=== PATIENT | female | born 1985 | race Caucasian/White ===

== ENCOUNTER 2017-11-15 15:30 | Emergency (ER) | payer SELFPAY ==
[~2017-11-15] VITALS: Ht 170.2 cm; Wt 73.5 kg
[~2017-11-15 15:30] MED LIST: GABA-534 PO; HYDR-548 PO; SUMA100T PO
--- NOTE | 2017-11-15 16:00 | NUR ---
Patient discharged to home in stable conditon. Written and verbal after care instructions given. Patient verbalizes understanding of instructions.pt walks in steady gait. pt refuses pain medicine at this time.
== END 2017-11-15 16:01 | disposition home or self-care (01) ==
LOC: EDBD → ER 15:30
DX: K08.89 Other specified disorders of teeth and supporting structures (principal); Z90.710 Acquired absence of both cervix and uterus; Z79.891 Long term (current) use of opiate analgesic; Z79.899 Other long term (current) drug therapy
CPT/HCPCS: A4663

== ENCOUNTER 2017-11-20 12:55 | Emergency (ER) | payer SELFPAY ==
[~2017-11-20] VITALS: Ht 170.2 cm; Wt 76.2 kg
--- NOTE | 2017-11-20 15:40 | NUR ---
Patient was seen and examined by Dr Cano in room 04B.
[2017-11-20 15:55] VITALS: BP 119/76
--- NOTE | 2017-11-20 15:55 | NUR ---
Patient discharged to home in stable conditon. Written and verbal after care instructions given. Patient verbalizes understanding of instructions.
== END 2017-11-20 15:58 | disposition home or self-care (01) ==
LOC: EDBD → ER 12:55
DX: K04.01 Reversible pulpitis (principal); Z90.710 Acquired absence of both cervix and uterus; Z79.891 Long term (current) use of opiate analgesic; Z79.899 Other long term (current) drug therapy
CPT/HCPCS: A4663

== ENCOUNTER 2017-11-21 13:52 | Emergency (ER) | payer MEDICAID ==
[~2017-11-21] VITALS: Ht 170.2 cm; Wt 76.2 kg
--- NOTE | 2017-11-21 14:36 | NUR ---
Patient discharged to home in stable conditon. Written and verbal after care instructions given. Patient verbalizes understanding of instructions.pt waks in steady gait.
== END 2017-11-21 14:38 | disposition home or self-care (01) ==
LOC: EDBD → ER 13:53
DX: K08.89 Other specified disorders of teeth and supporting structures (principal); Z79.891 Long term (current) use of opiate analgesic; Z79.899 Other long term (current) drug therapy
CPT/HCPCS: A4663

== ENCOUNTER 2017-12-29 05:04 | Emergency (ER) | payer MEDICAID ==
[~2017-12-29] VITALS: Ht 170.2 cm; Wt 72.6 kg
--- NOTE | 2017-12-29 05:34 | NUR ---
Dr. Gotti at bedside for MSE.
--- NOTE | 2017-12-29 05:48 | NUR ---
Patient discharged to home in stable conditon. Written and verbal after care instructions given. Patient verbalizes understanding of instructions. Patient ambulated out of ER with steady gait, no acute signs of distress, VSS, all belongings taken.
[2017-12-29 05:50] VITALS: BP 134/77
== END 2017-12-29 05:50 | disposition home or self-care (01) ==
LOC: ER 05:10
DX: K08.89 Other specified disorders of teeth and supporting structures (principal)
CPT/HCPCS: 99283; A4663

== ENCOUNTER 2018-11-19 05:15 | Emergency (ER) | payer MEDICAID ==
[~2018-11-19] VITALS: Ht 170.2 cm; Wt 68.0 kg
[~2018-11-19 05:15] MED LIST changes: +HYDR-4354 PO; -HYDR-548 PO
--- NOTE | 2018-11-19 05:33 | NUR ---
FADUMO VALENCIA at bedside for patient evaluation.
--- NOTE | 2018-11-19 05:42 | NUR ---
Patient discharged to home in stable conditon. Written and verbal after care instructions given. Patient verbalizes understanding of instructions. Ambulated from ER with stable gait. All belongings with patient. VSS
[2018-11-19 05:43] VITALS: BP 128/74
[2018-11-19] MEDS ORDERED: IBUPROFEN 600 MG TABLET PO ONE (05:45)
== END 2018-11-19 05:45 | disposition home or self-care (01) ==
LOC: ER 05:19 → EDBD 05:19 → ER 05:45
DX: K08.89 Other specified disorders of teeth and supporting structures (principal); Z90.710 Acquired absence of both cervix and uterus; Z79.899 Other long term (current) drug therapy
CPT/HCPCS: A4663

== ENCOUNTER 2020-05-03 10:17 | Emergency (ER) | payer MEDICAID ==
[~2020-05-03] VITALS: Ht 170.2 cm; Wt 68.0 kg
--- NOTE | 2020-05-03 10:29 | NUR ---
Patient discharged to home in stable condition. Written and verbal after care instructions given. Patient verbalizes understanding of instructions. Stressed follow up or return to ER for worsening s/s.
== END 2020-05-03 10:30 | disposition home or self-care (01) ==
LOC: ER 10:17
DX: R11.0 Nausea (principal); T36.8X5A Adverse effect of other systemic antibiotics, initial encounter; Y92.89 Other specified places as the place of occurrence of the external cause; K04.7 Periapical abscess without sinus; Z85.43 Personal history of malignant neoplasm of ovary; Z90.710 Acquired absence of both cervix and uterus
CPT/HCPCS: A4663

== ENCOUNTER 2021-01-27 12:48 | Emergency (ER) | payer SELFPAY ==
--- NOTE | 2021-01-27 12:50 | NUR ---
Attempted to triage pt, pt was not found in ER waiting room or outside ER.
== END 2021-01-27 13:08 | disposition left against medical advice (07) ==
LOC: ER 12:48
DX: Z53.21 Procedure and treatment not carried out due to patient leaving prior to being seen by health care provider (principal)